=== PATIENT | male | born 1960 | race Caucasian/White ===

== ENCOUNTER 2018-06-02 23:19 | Inpatient (IN) ==
[2018-06-02] MEDS ORDERED: HUMULIN R IV ONE (23:24)
[2018-06-03] MEDS ORDERED: ATIVAN ONE (00:33)
[2018-06-03 00:58] LABS: URINE SOURCE CLEAN CATCH
[2018-06-03 01:00] LABS: BILIRUBIN URINE NEGATIVE (NEGATIVE); BLOOD URINE TRACE (NEGATIVE); COLOR STRAW; GLUCOSE URINE >1000 mg/dL (NEGATIVE); KETONE URINE NEGATIVE (NEGATIVE); LEUKOCYTES URINE NEGATIVE (NEGATIVE); NITRITE URINE NEGATIVE (NEGATIVE); PROTEIN URINE 200 mg/dL (NEGATIVE); SP GRAVITY URINE 1.008; TURBIDITY URINE CLEAR (CLEAR); UROBILINOGEN URINE NORMAL (NORMAL)
[2018-06-03 01:01] LABS: UR EPITHELIAL CELLS <10 /HPF (<10); URINE BACTERIA NEGATIVE /HPF; URINE RBC <10 /HPF (<10); URINE WBC <10 /HPF (<10)
[2018-06-03 01:11] LABS: BASO# 0.03 X1000 (0.0-0.2); BASO% 0.2 % (0.0-0.8); EOS# 0.18 X1000 (0.0-0.7); EOS% 1.4 % (0.0-10.0); HEMATOCRIT 33.4 % (42.0-52.0); HEMOGLOBIN 10.6 g/dL (14.0-18.0); LYMPH# 0.42 X1000 (1.2-3.4); LYMPH% 3.3 % (20.5-51.1); MCH 29.8 PG (27-31); MCHC 31.7 g/dL (33-37); MCV 93.8 FL (81-99); MONO# 0.41 X1000 (0.11-0.59); MONO% 3.2 % (1.7-9.3); MPV 11.5 FL (7.4-10.4); NEUT# 11.83 X1000 (1.4-6.5); NEUT% 91.9 % (42.2-75.2); PLT 280 X1000 (130-400); RBC 3.56 XMIL (4.7-6.1); RDW 14.3 % (11.5-14.5); WBC 12.87 X1000 (4.8-10.8)
[2018-06-03 01:12] LABS: ALB/GLOB RATIO 0.9; ALBUMIN 3.8 g/dL (3.5-5.0); CALCIUM 9.3 mg/dL (8.8-10.2); CREATININE 5.4 mg/dL (0.7-1.2); TOTAL BILIRUBIN 0.18 mg/dL (0.20-1.00)
[2018-06-03 01:17] LABS: POTASSIUM 6.3 mmol/L (3.5-5.1)
[2018-06-03 01:21] LABS: UR AMPHETAMINES QUAL NONE DETECTED (NONE DETECT); UR BARBITUATES QUAL NONE DETECTED (NONE DETECT); UR BENZODIAZEPIN QUAL NONE DETECTED (NONE DETECT); UR CANNABINOIDS QUAL NONE DETECTED (NONE DETECT); UR COCAINE QUAL NONE DETECTED (NONE DETECT); UR METHADONE QUAL NONE DETECTED (NONE DETECT); UR OPIATES QUAL NONE DETECTED (NONE DETECT); UR OXYCODONE QUAL NONE DETECTED (NONE DETECT); UR PCP QUAL NONE DETECTED (NONE DETECT)
[2018-06-03] MEDS ORDERED: HUMULIN R IV ONE (01:48)
--- NOTE | 2018-06-03 01:56 | PROVIDER DOCUMENTATION ---
This chart was entered by Nasima Johnson Scribe, acting as scribe for Howard Vega MD. HPI-General Adult - General Chief Complaint: Stroke-Like Symptoms Stated Complaint: unresponsive Time Seen by Provider: 06/02/18 23:22 Source: patient, EMS Allergies/Adverse Reactions: Patient Allergies Allergy/AdvReac Type Severity Reaction Status Date / Time No Known Allergies Allergy Verified 06/03/18 00:44 Home Medications: Home Medication List Medication Instructions Recorded Confirmed Last Taken Type Aspirin 81 mg PO DAILY #30 tab.chew 07/19/17 05/13/18 03/26/18 09:00 Rx Cyclobenzaprine [Flexeril] 10 mg PO TID PRN #15 tab 03/29/18 06/03/18 Unknown Rx Amiodarone [Cordarone] 200 mg PO DAILY #0 tablet 05/22/18 06/03/18 Unknown Rx Insulin Glargine [Basaglar] 40 unit SUBQ QAM insuln.pen 05/22/18 Unknown Rx Amlodipine [Norvasc] 10 mg PO DAILY 06/03/18 06/03/18 Unknown History Apixaban [Eliquis] 5 mg PO BID 06/03/18 06/03/18 Unknown History Gabapentin [Neurontin] 300 mg PO TID 06/03/18 06/03/18 Unknown History - History of Present Illness -Gen Adult Nature of Presenting Problems: Pt is 58/m, presenting to ED via EMS. He was found unresponsive by his and she called EMS. He was responsive upon arrival to ED. Pt has hx of CVA. Pt is on dialysis and sts that he drives himself. Location of Pain/Injury: reports: none Pain Radiation: reports: no radiation Quality of Pain: reports: none Severity: reports: moderate Onset/Duration: reports: just prior to arrival Timing: reports: improving Context/Activities at Onset: reports: none Modifying Factors: improves with: nothing Associated Symptoms: reports: denies symptoms Similar Symptoms Previously?: No Recently seen or treated by another doctor?: No - Diabetes Related Context Context: reports: high blood sugar (over 500) Review of Systems - Adult - REVIEW OF SYSTEMS - ADULT Constitutional: reports: no symptoms reported. denies: chills, fever Eyes: reports: no symptoms reported Ears, Nose, Mouth & Throat: reports: no symptoms reported Cardiovascular: reports: no symptoms reported Respiratory: reports: no symptoms reported Gastrointestinal: reports: no symptoms reported. denies: abdominal pain, diarrhea, nausea, vomiting Genitourinary: reports: no symptoms reported Musculoskeletal: reports: no symptoms reported Integumentary: reports: no symptoms reported Neurological: reports: no symptoms reported. denies: dizziness/vertigo, headache/migraines Psychiatric: reports: no symptoms reported Endocrine: reports: no symptoms reported Hematologic/Lymphatic: reports: no symptoms reported Allergic/Immunologic: reports: no symptoms reported All Other Systems: Reviewed and Negative Past History - Adult - PAST MEDICAL HISTORY-ADULT Review of Records: reports: Old Records Reviewed, Nursing Assessment Review, Medications Reviewed, Social history reviewed & non-contributory. Major Childhood Illnesses: reports: denies history Cardiovascular: reports: A-Fib, HTN, hyperlipidemia Genitourinary: reports: dialysis (MWF), ESRD Musculoskeletal: reports: denies history Neurological: reports: CVA Psychiatric: reports: denies history Endocrine/Immune: reports: Diabetes - PRIOR SURGERIES/PROCEDURES Surgical/Procedure History: reports: indwelling device (R fistula; dialysis port ), orthopedic (extremity) (L wrist) - IMMUNIZATION STATUS Childhood Immunizations: See Nurse Assessment Flu Vaccine: See Nurse Assessment - FAMILY HISTORY Family History: reviewed, not pertinent - SOCIAL HISTORY Smoking: cigarettes, less than 1 pack/day Provider spent 3-5 mins advising pt. on dangers of tobacco.: Discussed manners to quit use, and f/u contacts for add'l counseling. Substance Use: none/never Alcohol Use Frequency: never Living Situation: family Physical Exam-General - PHYSICAL EXAM-ADULT Initial Vital Signs Reviewed: Yes - CONSTITUTIONAL General Appearance: alert, other (Exam began w/ pt oriented and answering questions, as the exam progressed pt became more and more jerky w/ movements. He then had a grand maul seizure lasting around 1 minutes.) - EYES Eyes: PERRL/EOMI - HEAD, EARS, NOSE, MOUTH & THROAT HENMT: normocephalic/atraumatic, moist mucous membranes, normal ENT inspection, TMs normal, pharynx normal - NECK Neck: non-tender, full range of motion, supple - RESPIRATORY Respiratory: chest non-tender, lungs clear, normal breath sounds (*before seizure) - CARDIOVASCULAR Cardiovascular: regular rate, rhythm - GASTROINTESTINAL (ABDOMEN) Abdominal Exam: normal bowel sounds, non tender, soft - LYMPHATIC Lymphatic: no adenopathy - MUSCULOSKELETAL Back Exam: normal inspection, no CVA tenderness, no vertebral tenderness Extremity: normal range of motion, non-tender, normal gait, normal inspection - SKIN Integumentary: normal color, normal turgor, warm/dry - NEUROLOGIC Neurologic: grossly normal - PSYCHIATRIC Psych/Mental Status: normal mood/affect, normal thought content, normal thought process, oriented x 3 Progress - PLAN OF CARE/RESULTS Progress/Plan/Lab Results: Vital Signs - 8 hr 06/03/18 00:04 Pulse Rate 78 Respiratory Rate 16 Blood Pressure 145/78 O2 Sat by Pulse Oximetry 97 Orders Category Date Time Status CT HEAD W/O CONTRAST [CT] Stat Exams 06/02/18 23:22 Taken CBC WITH ELECTRONIC DIFF [HEME] Stat Lab 06/02/18 23:22 Uncollected COMPREHENSIVE METABOLIC PANEL [CHEM] Stat Lab 06/02/18 23:22 Uncollected Insulin Human Regular [Humulin R] Med 06/02/18 23:24 Discontinued 10 unit IV NOW ONE Result Diagrams: 06/03/18 00:17 06/03/18 00:17 - REASSESSMENT Reassessment #1 Time Reassessed: 01:49 Status: unchanged (He did have a one min tonic clonic GM seizure after return from CT scan and his lab work has returned confirming a K+ of 6.3 and BS 538 despite despite 10 units of insulin IV shortly after admission.) - EKG 1 Time of EKG reading by physician:: 00:51 EKG Interpretation (*Must complete 3 of following elements*): Abnormal (normal sinus rhythm, left axis deviation, Inferior infarct, age undetermined, Abnormal ECG) Rate: 99 Rhythm: Sinus - CT/MRI 1 CT Study: Head Impression: Abnormal (Impression: 1. Mild cerebral volume loss with white matter changes most frequently ascribed to chronic small vessel ischemic disease. No acute intracranial abnormality. See detailed discussion. 2. Right greater than left mastoiditis. Ethmoid and maxillary sinusititis , acute component in left maxillary sinus) - CONSULTS/PCP/HOSPITALIST Notification #1 *Consult/PCP/Hospitalist*: Dr Connelly Time Discussed: 01:53 Consult Disposition: Admit Departure - Departure Date of Disposition Decision: 06/03/18 Time of Disposition Decision: 01:54 DIAGNOSIS: Hyperglycemia without ketosis, Uremia, Chronic renal failure, Diabetes Disposition: HOME 01 Certified Medical Emergency: Emergent Condition: Serious Referrals and Follow-Ups: None,PCP [Primary Care Provider] - - Critical Care Note This patient required my direct & personal management of CC.: Yes Total Time (mins): 40 Critical Care Statement: This patient required my direct personal management to treat or rule out processes, the absence of which, could potentiallly result in sudden, clinically significant life or limb threatening deterioration. Attestation - Physician/ LEISA Attestation Patient care was provided by Advanced Practice Provider:: No The physician spent face to face time with patient:: Yes Advanced Practice Provider documentation review:: Supervising physician onsite and consulted in the evaluation and care of this patient. The physician did have a face to face encounter with the patient. This chart was documented by the indicated scribe, (Nasima Johnson, Scribe) and accurately reflects the services I performed and decisions made by me, Howard Vega MD, as attested by the provider's signature.
[2018-06-03] MEDS ORDERED: ATIVAN IV PRN (03:26)
[2018-06-03] MEDS ORDERED: ZOFRAN IV PRN (04:07)
[2018-06-03] MEDS ORDERED: KAYEXALATE PO ONE (04:07)
--- NOTE | 2018-06-03 04:10 | HISTORY AND PHYSICAL ---
PRIMARY CARE PHYSICIAN: Dr. Arias Browning. CHIEF COMPLAINT: Altered mental status. HISTORY OF PRESENTING ILLNESS: A 58-year-old male with a history of end-stage renal disease, diabetes mellitus type 2, hypertension, chronic atrial fibrillation, who was brought to the emergency department because patient was altered and confused, and not responsive. He was brought to the emergency department. He still was somewhat sluggish, but however, he was able to answer a few questions. It seems that patient had missed his dialysis sessions for the past week or so. He was evaluated in the emergency department and due to his presenting symptoms, it was thought that he would need admission for further management. At the time of my examination, he was able to deny any headache, fever, chills, chest pain, shortness of breath, or any weight changes, but complained of not feeling well. Remaining history is limited from patient. Most of it is obtained from previous records. PAST MEDICAL HISTORY: End-stage renal disease, diabetes mellitus type 2, hypertension, hyperlipidemia, chronic atrial fibrillation. PAST SURGICAL HISTORY: Left arm fistula, left arm surgery, right upper chest tunnel catheter. ALLERGIES: No known drug allergies. CURRENT MEDICATIONS: As listed in the medication reconciliation sheet. SOCIAL HISTORY: 40+ pack years history of smoking. Denies any history of alcohol or illicit drug use. FAMILY HISTORY: No history of coronary disease. REVIEW OF SYSTEMS: Limited. PHYSICAL EXAMINATION: GENERAL: The patient is resting comfortably. However, is somewhat confused and somnolent. HEENT: Atraumatic, normocephalic. NECK: No masses. CHEST: Clear to auscultation. CARDIOVASCULAR: Regular rate and rhythm. ABDOMEN: Soft. Positive bowel sounds. EXTREMITIES: No edema. NEUROLOGIC: Patient is arousable on verbal and tactile stimuli. GENITOURINARY: No bladder distention. SKIN: Warm. LABORATORIES AND STUDIES: WBCs 12.87, hemoglobin 10.6, hematocrit 33.4, platelets 280,000. Sodium 129, potassium 6.3, chloride 90, CO2 is 16, BUN is 42, creatinine is 5.4. Glucose is 538. ASSESSMENT: This is a 58-year-old male with a history of end-stage renal disease, diabetes mellitus type 2, hypertension, chronic atrial fibrillation, who was brought to the emergency department due to patient being altered. Apparently, he had missed his dialysis sessions. He was seen in the emergency room and due to his presenting symptoms, he will need admission for further management. IMPRESSION: 1. Altered mental status. 2. Metabolic encephalopathy. 3. End-stage renal disease, apparently had missed dialysis session. 4. Hyperkalemia. 5. Chronic atrial fibrillation on anticoagulation. 6. Diabetes mellitus type 2 with hyperglycemia. 7. Hypertension. PLAN: 1. The patient will be admitted to medical floor with telemetry. 2. We will continue with neuro checks. 3. We will treat patient for his hyperkalemia. 4. We will consult Nephrology for dialysis. 5. We will continue patient on his anticoagulation for atrial fibrillation. 6. We will monitor blood glucose and put patient on a sliding scale insulin regimen. 7. We will monitor blood pressure, resume antihypertensive agents. 8. We will put patient on DVT prophylaxis with SCD. 9. The patient's condition is guarded. 10. We will continue to follow and reassess, and make further recommendation based on patient's clinical course. cc: Ba Connelly MD
[2018-06-03] MEDS: HUMULIN R SUBQ SCH ×4 (06:50→23:00)
--- NOTE | 2018-06-03 07:02 | Diag Imaging Result Doc PS360 ---
EXAM: CT HEAD W/O CONTRAST 06/02/2018 HISTORY: ams since 14:30 TECHNIQUE: This exam was performed using automated exposure control, adjustment of mA or kV according to patient size, and/or use of iterative reconstruction technique. COMMENT: There is patchy lucency in the periventricular white matter particularly in the frontal horns which was also present at the time the previous study of 12/11/2017. There is no evidence of mass effect, bleed, abnormal extra-axial fluid collection, or hydrocephalus. There is a small lacune in the right cerebellar hemisphere which was also present previously. The calvarium is intact. There is an air-fluid level in the left maxillary sinus and mucosal thickening in the right maxillary sinus. There is effusion throughout the right mastoid air cells. There is some fluid in the inferior left mastoid air cells. This was not present on the previous study. IMPRESSION: Bilateral maxillary sinusitis. Right mastoiditis. Chronic ischemic microvascular changes. Electronically signed by Ciaran Sorenson 06/03/2018 7:00 AM
--- NOTE | 2018-06-03 08:07 | EKG Report ---
Test Performed on : 06/03/2018 00:51:55 AM Test Reason : CP Blood Pressure : / mmHG Vent. Rate : 099 BPM Atrial Rate : 099 BPM P-R Int : 202 ms QRS Dur : 090 ms QT Int : 370 ms P-R-T Axes : 041 -41 037 degrees QTc Int : 474 ms Normal sinus rhythm. Left axis deviation Inferior infarct , age undetermined Abnormal ECG When compared with ECG of 19-MAY-2018 09:09, Inferior infarct is now present Unconfirmed Result
[2018-06-03] MEDS ORDERED: TIGHT: 0.2 ML/HR FOR DIALYSIS MISC PRN (08:12)
[2018-06-03] MEDS ORDERED: HEPARIN IV PRN (08:12)
[2018-06-03] MEDS ORDERED: NS 2,000 ML MISC PRN (08:12)
[2018-06-03] MEDS: ELIQUIS PO SCH ×2 (10:07→22:59)
[2018-06-03] MEDS: CORDARONE PO SCH (10:07)
[2018-06-03] MEDS: NORVASC PO SCH (10:07)
[2018-06-03] MEDS: ASPIRIN PO SCH (10:07)
[2018-06-03] MEDS: BASAGLAR SUBQ SCH ×2 (10:16→10:45)
[2018-06-03] MEDS ORDERED: INSULIN PEN NEEDLES ONE (10:17)
[2018-06-03 10:43] LABS: CALCIUM 8.5 mg/dL (8.8-10.2); POTASSIUM 5.9 mmol/L (3.5-5.1)
[2018-06-03 10:53] LABS: CREATININE 5.5 mg/dL (0.7-1.2)
--- NOTE | 2018-06-03 10:58 | PROGRESS NOTE ---
DATE: 06/03/2018 INTERVAL HISTORY: Mr. Fox is a 58 year old man who was admitted overnight for acute encephalopathy which was thought to be related to metabolic derangement because of him missing hemodialysis leading to hyponatremia, hypochloremia, hyperkalemia, elevated BUN and creatinine, and hyperglycemia. He had received a dose of Kayexalate and insulin. Repeat BMP check is pending. SUBJECTIVE: I evaluated the patient in the emergency room. He is awake. He is still a little confused. He could not remember the entire course of events. He states that he was not feeling well, was feeling dizzy, and had multiple falls since yesterday, and that he might have had a stroke or seizure. He thinks that his [id number] had called the emergency room services, but otherwise he is not able to provide meaningful history. I called the patient's son who did not warehouse order picker, and I had left a voice message so that I can get more history. OBJECTIVE: Vital Signs: Temperature 97.8 degrees, pulse 76 per minute, blood pressure 134/78, and saturating 100% on 3 to 4 L nasal cannula. General: The patient does not appear in any acute distress. Appears confused and disheveled. Oral cavity has missing teeth. Otherwise has saliva. Lungs: Air entry bilaterally equal. No wheeze, rhonchi, or crackles. Cardiovascular: S1, S2 normal. No murmur, rub, or gallop. Abdomen: Soft and nontender. Lower Extremities: No edema. Neurologic: He is alert. He is oriented to himself and place, and to some extent situation as well. He is able to lift all of his extremities above ground level. However, he has some weakness against resistance on left upper and left lower extremities compared to right. No obvious facial droop or ptosis. Neurological examination is restricted because of his inability to participate with examination completely. LABORATORY: Labs are suggestive of leukocytosis. Hemoglobin and platelet count in acceptable range. Hyponatremia, hyperkalemia, hypochloremia, metabolic acidosis, elevated BUN and creatinine, and hyperglycemia. Microbiology: No microbiologic data. Imaging: Head CT had chronic microvascular ischemic changes. Electrocardiogram has normal sinus rhythm with left axis deviation. There were also Q-waves in lead 3 and AVF, which appear to be present before as well. ASSESSMENT AND PLAN: 1. Acute metabolic encephalopathy, likely because of multiple electrolyte derangements and hyperglycemia with documented history of missing hemodialysis. Nephrology has been consulted for hemodialysis. There was a question of seizure. However, he denies prior history of known seizure and waiting to get in touch with the family to have better idea about this history. I will hold off on giving any antiseizure medication at the moment. Currently, acute encephalopathy appears to be improving. 2. Hyperkalemia. He is status post insulin. Follow up with repeat BMP and treat accordingly. 3. Hyperglycemia with history of insulin-dependent diabetes mellitus. Started him on his half dose of his home glargine. Continue sliding scale insulin. 4. History of atrial fibrillation. Continue home amiodarone and Eliquis. 5. History of CVA with residual left upper and left lower extremity. Continue home aspirin and Eliquis. 6. History of essential hypertension. Resume amlodipine as tolerated. 7. History of chronic neuropathic pain. I will restart his gabapentin once his mental status is appropriate. 8. Disposition: Patient remains on medical floor for need for dialysis. if needed in the future, I would consider getting an EEG. Plan of care discussed with the patient. I could not talk with his son and have left a voice message. cc: Luciano Perez MD
--- NOTE | 2018-06-03 14:17 | NEPHROLOGY CONSULTATION ---
DATE: 06/03/2018 REASON FOR ADMISSION: Altered mental status. REASON FOR CONSULT: End-stage renal disease with assistance with medical management. HISTORY OF PRESENT ILLNESS: Mr. Fox is a 58-year-old white male who is known to our outpatient services for end-stage renal disease with dialysis on Sunday, Sunday, Sunday at the [facility]. The patient had recently been hospitalized for noncompliance of his dialysis treatments this past month. Unfortunately, he states that he was going to start doing better and it is known that he has not been attending his last treatments at this time as he has altered mental status and is unable to report his last treatments. States that he was brought to the emergency room after being found unresponsive. In the emergency room he was somewhat sluggish, was able to answer a few questions. Chart indicates in the emergency room that he had missed several treatments this past week. Evaluated and found to have presenting symptoms of possible UTI and possible uremia. He was admitted to the hospital for further management. CT of the head was performed in the emergency room which showed no acute disease. The patient was recently discharged with a history of end stage kidney disease and diabetic ketoacidosis with altered mental status earlier this month. PAST MEDICAL HISTORY: End-stage renal disease, the hemodialysis his Sunday, Sunday, Sunday at the [facility], diabetes mellitus type 2, uncontrolled, hypertension, hyperlipidemia, chronic atrial fibrillation, anemia of chronic disease, osteodystrophy of chronic disease. PAST SURGICAL HISTORY: Left arm fistula, left arm surgery, right upper chest tunneled dialysis catheter. SOCIAL HISTORY: He lives on and off with his daughter. A 40 pack a year smoker. Denies any alcohol or illicit drug use. FAMILY HISTORY: Positive for diabetes. No known coronary artery or end-stage renal disease. ALLERGIES: Listed as no known drug allergies. HOME MEDICATIONS: Have been reviewed, yet to be reconciled. REVIEW OF SYSTEMS: Unable to obtain strictly from the patient due to his altered mental status. Most obtained from most recent charts. VITAL SIGNS: Most recent vital signs, temperature 97.6 degrees, blood pressure 126/86, heart rate 86, respirations 20. He is on 4 L nasal cannula. Last recorded saturation 99% . He has had 1030 in, 450 out to void. LABS: Sodium 129, potassium 6.3, chloride 90, CO2 16, BUN 42, creatinine 5.4, glucose 538, anion gap 23, calcium 9.3, albumin 3.8. White count 12.87, hemoglobin 10.6, hematocrit 33.7, with platelet count of 280,000. PHYSICAL EXAMINATION: General: This is a 58-year-old white male resting quietly in bed. Head of the bed is elevated. He remains confused, though he is resting quiet and comfortable. HEENT: Normocephalic, atraumatic. Conjunctivae pale pink. He has JESSICA. Mucous membranes are dry. Neck: Supple. Trachea midline. No evidence of JVD in the upright position. Cardiovascular: Regular rate and rhythm. No murmur appreciated. Lungs: Clear to auscultation bilaterally. Equal excursion. Abdomen: Hypoactive bowel sounds. Extremities: Have no edema. No clubbing or cyanosis. Neurological: As mentioned above. ASSESSMENT AND PLAN: 1. Chronic kidney disease stage 5D. The patient is due for his routine dialysis treatment today. We will place him on a 2 K bath. He is to dialyze for 3.5 hours. We will attempt to pull patient to his last outpatient dry weight. We may attempt dialysis tomorrow and the next several days if needed to improve his uremic symptoms. 2. Electrolytes. Patient is hyperkalemic and hyponatremic, secondary to number one, with correction on dialysis. 3. Acid-base balance. CO2 of 16, with correction on dialysis. 4. Anemia. This is low but stable. 5. Altered mental status. The patient appears to be uremic. We will plan for dialysis today and possibly several times in a row to assist with his encephalopathy. I would like to thank you for allowing us to follow with this patient. Dictated by JITENDRA Newsome for Cameron Mcneil MD Face to face encounter, data reviewed, discussed with Brian Pineda on 06/03/18. I agree with the above assessment and plan of care. cc: JITENDRA Newsome MD [facility]
[2018-06-03] MEDS ORDERED: ALBUTEROL 0.5% INH CONC FOR HYPERKALEMIA INH ONE (14:20)
[2018-06-04] MEDS: HUMULIN R SUBQ SCH ×4 (06:38→22:11)
[2018-06-04 07:30] LABS: BASO# 0.03 X1000 (0.0-0.2); BASO% 0.4 % (0.0-0.8); EOS# 0.41 X1000 (0.0-0.7); HEMATOCRIT 29.4 % (42.0-52.0); HEMOGLOBIN 9.4 g/dL (14.0-18.0); LYMPH# 1.38 X1000 (1.2-3.4); LYMPH% 20.1 % (20.5-51.1); MCH 29.4 PG (27-31); MCV 91.9 FL (81-99); MONO# 0.55 X1000 (0.11-0.59); MPV 10.7 FL (7.4-10.4); NEUT# 4.49 X1000 (1.4-6.5); NEUT% 65.5 % (42.2-75.2); PLT 244 X1000 (130-400); RDW 14.2 % (11.5-14.5); WBC 6.86 X1000 (4.8-10.8)
[2018-06-04] MEDS: ASPIRIN PO SCH (08:13)
[2018-06-04] MEDS: ELIQUIS PO SCH ×2 (08:13→22:11)
[2018-06-04] MEDS: CORDARONE PO SCH (08:13)
[2018-06-04] MEDS: NORVASC PO SCH (08:13)
[2018-06-04 08:15] LABS: CALCIUM 8.1 mg/dL (8.8-10.2); CREATININE 3.5 mg/dL (0.7-1.2); POTASSIUM 5.1 mmol/L (3.5-5.1)
[2018-06-04] MEDS: BASAGLAR SUBQ SCH (08:15)
--- NOTE | 2018-06-04 10:28 | Diag Imaging Result Doc PS360 ---
CHEST-2 VIEWS - 06/04/2018 INDICATION: chest pain, cough COMPARISON: 05/19/2018 FINDINGS: There is worsening faint infiltrate in the lung bases bilaterally mainly in the lower lobes. There are trace bilateral pleural effusions. Heart size and pulmonary vascularity is normal. Stable high-grade compression fracture in the midthoracic spine. IMPRESSION: Faint bibasilar infiltrates. Trace bilateral pleural effusions. Electronically signed by Juan Miguel Whyte 06/04/2018 10:25 AM
--- NOTE | 2018-06-04 11:23 | NEPHROLOGY PROGRESS NOTE ---
DATE: 06/04/2018 TIME SEEN: 0830. SUBJECTIVE: Mr. Fox is resting quietly in bed. Head of the bed is slightly elevated. He states that he had fallen several times over the last week and has some rib discomfort. OBJECTIVE: Vital Signs: Temperature 98.2 degrees, blood pressure 108/70, heart rate 84, respirations 14. He is on 4 L nasal cannula. Last recorded saturation 97%. He has had 0 recorded in with 4375 out, 2.5 L on dialysis. Laboratory Data: Sodium 134, potassium 5.1, chloride is 97, CO2 24, BUN 16, creatinine 3.5, glucose 159, anion gap of 13, calcium 8.1. White count 6.86, hemoglobin 9.4, hematocrit 29.4, with a platelet count of 244,000. The patient had a chest x-ray this a.m. showing faint bibasilar infiltrates with trace bilateral pleural effusions. Physical Examination: General: This is a 58-year-old, white male resting quietly in bed. He appears in no acute distress. His skin is warm and dry. HEENT: Normocephalic , atraumatic. Conjunctivae are pale pink. He has JESSICA. Mucous membranes are moist. Neck: Supple. Trachea midline. No evidence of JVD in the upright position. Cardiovascular: Regular rate and rhythm. He is without murmur or gallop. Lungs: Clear to auscultation bilaterally. Equal excursion. He is currently on O2. Abdomen: Soft, nontender. Positive bowel sounds. Genitourinary: The patient has adequate urine out with dialysis assist. Extremities: Have no edema. No clubbing or cyanosis. Neurological: He is more awake and alert today to person and to place, most recent events. ASSESSMENT AND PLAN: 1. Chronic kidney disease stage 5D. The patient had his routine dialysis treatment yesterday. His BUN is down to 16 with a creatinine of 3.5. Chest x-ray shows that he has bilateral infiltrates with some pleural effusions. We will plan to challenge his dry weight again tomorrow on dialysis. 2. Electrolytes and acid-base balance. These remain stable. 3. Anemia. This is low but acceptable. 4. Altered mental status. This has improved. I would like to thank you for allowing us to follow with this patient. Dictated by JITENDRA Newsomeh, MD Face to face encounter, data reviewed, discussed with Brian Pineda on 06/04/18. I agree with the above assessment and plan of care. cc: JITENDRA Newsome MD [facility]
--- NOTE | 2018-06-04 17:50 | PROGRESS NOTE ---
DATE: 06/04/2018 INTERVAL EVENTS: The patient underwent hemodialysis yesterday. The patient tells me that his son's telephone is not working and that is why I was not able to reach out to him yesterday. I have to leave a voice message. He states he does not have any contact information. I told him to have his son or [id number] leave contact information so that I can get a proper history. Today patient states that the day prior to presentation he kept on falling down and probably his daughter in-law called EMS. He states that he has been compliant with his dialysis though. However, documentation suggests that he was not. Currently the patient is complaining of some chest soreness, but the chest x-ray is negative. OBJECTIVE: Vital signs: Temperature of 97.7 degrees, pulse 77, blood pressure 120/75, saturating 95% on room air. General: Does not appear in any acute distress. HEENT: Oral cavity is moist. Lungs: Air entry bilaterally equal. No wheeze, rhonchi, crackles. Cardiovascular: S1, S2 normal. Continuous murmur of AV fistula with left arm AV fistula. No rub or gallop. Abdomen: Soft, nontender. Lower Extremities: No edema. Neurologic: He is alert and oriented x3. Able to move all of his extremities above ground level. LABS: Labs today suggestive of resolution of leukocytosis which he had at the time of presentation. Acceptable range of hemoglobin, hematocrit, and platelet count. Hyponatremia, hypochloremia, improvement in bicarbonate. Improvement in BUN and creatinine. Hyperglycemia. He has yet to receive his sliding scale insulin during daytime. MICROBIOLOGY: No data report. IMAGING: Chest x-ray had suggested bilateral pleural effusion. On my review, I could not appreciate any infiltrate though. Head CT on admission did not detect any acute cardiopulmonary process. ASSESSMENT AND PLAN: 1. Acute metabolic encephalopathy, likely because of missing hemodialysis, multiple electrolyte derangement including hyponatremia, hypochloremia, acidosis on presentation, uremia, and hyperglycemia. Now it has resolved. Continue to monitor patient. There was a question of seizure. However, the patient denies any known prior history of seizure and I have not been able to reach out to the family to get proper history. I will hold giving antiseizure medication at the moment. 2. Hyperkalemia on presentation. Now resolved, after dialysis. 3. Hyperglycemia with history of insulin-dependent diabetes mellitus. Increase his long-acting insulin dose. Continue sliding scale insulin. I reminded the care team to give him sliding scale insulin which he has not received since the morning, 6:30 a.m. 4. History of atrial fibrillation, currently rate controlled. Continue home amiodarone and Eliquis. His EKG was normal sinus rhythm. 5. History of cerebrovascular accident with residual left upper and left lower extremity weakness. Continue home aspirin and Eliquis. 6. History of essential hypertension. I will resume home amlodipine as tolerated. Currently, his blood pressure is in acceptable range. 7. History of chronic neuropathic pain. I will add back his gabapentin when he asks for it. Currently, he is not complaining of any pain. 8. Disposition. I will have physical therapy evaluate the patient tomorrow as he has had multiple falls. If he is able to ambulate without any trouble, my plan is to discharge him home after hemodialysis tomorrow. Plan of care was discussed with the patient. All of his questions were answered. I have asked the patient to have his family members leave contact information. cc: Luciano Perez MD
[2018-06-05] MEDS: HUMULIN R SUBQ SCH ×4 (06:07→22:30)
[2018-06-05] MEDS ORDERED: NS 2,000 ML MISC PRN (06:42)
[2018-06-05] MEDS ORDERED: HEPARIN IV PRN (06:42)
[2018-06-05] MEDS ORDERED: TIGHT: 0.2 ML/HR FOR DIALYSIS MISC PRN (06:42)
[2018-06-05 07:26] LABS: ALBUMIN 3.1 g/dL (3.5-5.0); CALCIUM 9.1 mg/dL (8.8-10.2); CREATININE 4.6 mg/dL (0.7-1.2); POTASSIUM 4.9 mmol/L (3.5-5.1)
[2018-06-05] MEDS: ASPIRIN PO SCH (08:45)
[2018-06-05] MEDS: CORDARONE PO SCH (08:45)
[2018-06-05] MEDS: NORVASC PO SCH (08:45)
[2018-06-05] MEDS: ELIQUIS PO SCH ×2 (08:45→21:02)
[2018-06-05] MEDS: BASAGLAR SUBQ SCH (08:46)
[2018-06-05] MEDS ORDERED: BASAGLAR SUBQ SCH (09:00)
--- NOTE | 2018-06-05 10:04 | NEPHROLOGY PROGRESS NOTE ---
DATE: 06/05/2018 DATE AND TIME SEEN: 06/05/2018 at 0738. SUBJECTIVE: Mr. Fox is resting quietly in bed. He denies any pain. No increased work of breathing. He states that his chest hurts with deep inspiratory effort and movement secondary to recent falls. OBJECTIVE: Vital Signs: Temperature 97.6, blood pressure 154/79, heart rate 82 , respirations are 20. He is on room air. Last recorded saturation 97%. He has had 480 in and 1400 out. LABORATORY DATA: Sodium 136, potassium 4.9, chloride 97, CO2 of 22. BUN 30, creatinine 4.6, glucose 60. Anion gap 17, calcium 9.1, phosphorus 4, albumin 3.1. Previous hemoglobin 9.4 on 06/04/2018. PHYSICAL EXAMINATION: This is a 58-year-old white male who appears older than his stated age. He is resting quietly in no acute distress. Skin is warm and dry. HEENT: Normocephalic, atraumatic. Conjunctivae pale, pink. He has JESSICA. Mucous membranes are moist. Neck is supple. Trachea midline. No JVD. Cardiovascular: Regular rate and rhythm. S4 is present. Lungs are clear to auscultation bilaterally. Equal excursion on room air. Abdomen is soft, nontender. Positive bowel sounds. Genitourinary: Not inspected. Minimal void with dialysis assist. Extremities have no edema. No clubbing or cyanosis. Neurologic: Alert and oriented x3. ASSESSMENT AND PLAN: 1. Chronic kidney disease, stage 5D. The patient is due for his routine dialysis treatment today. We will place him on a 2K bath, dialyze for 3.5 hours. We will attempt to pull patient to his outpatient dry weight. 2. Electrolytes and acid-base balance. These are stable. 3. Anemia. This is acceptable. 4. Altered mental status. This has improved. We have encouraged patient to attend his outpatient prescription dialysis upon discharge as directed. I would like to thank you for allowing us to follow with this patient. Dictated by JITENDRA Newsome for Cameron Mcneil MD Face to face encounter, data reviewed, discussed with Brian Pineda on 06/06/18. I agree with the above assessment and plan of care. cc: JITENDRA Newsome MD [facility]
--- NOTE | 2018-06-05 16:59 | PROGRESS NOTE ---
DATE: 06/05/2018 INTERVAL EVENTS: No interval events acutely. The patient was able to work with physical therapy without any trouble. Physical therapy had recommended home with home physical therapy. SUBJECTIVE: Patient complains of some chest soreness. He denies any more shortness of breath. He has been alert and oriented x3. His blood sugars were fluctuating, for which insulin dose has been adjusted. He is getting dialysis and I saw him in dialysis. I discussed with him about discharge planning. However, he states that he would not be able to go home today as he does not have a ride and likely his family members are going to come by tomorrow, when he would like to go. OBJECTIVE: Vital signs: Temperature 98.3 degrees, pulse 80, respiratory rate 20, blood pressure 138/84, saturating 98% on room air. General: Does not appear in acute distress. HEENT: Oral cavity is moist. Lungs: Air entry bilaterally equal. No wheeze, rhonchi, crackles. Cardiovascular: S1, S2 normal. Continuous murmur of AV fistula with left arm AV fistula connected to dialysis tubing. No rub or gallop. Abdomen: Soft, nontender. Extremities: No lower extremity edema. Neurologic: Alert and oriented x3. On my yesterday's neurological examination, he was able to move all of his extremities above ground level without any trouble. LABS: BMP suggestive of elevated BUN and creatinine. No CBC today. His blood sugars have been ranging between 58 to 250. ASSESSMENT AND PLAN: 1. Acute metabolic encephalopathy because of missing hemodialysis, hyponatremia , hypochloremia, acidosis, hyperkalemia, uremia, and hyperglycemia, now resolved. Currently his mental status is alert and oriented x3, which is his baseline. There was a question of seizure on admission. However, patient denies any known prior history of seizure. I have not been able to get in touch with the patient's family members to get more history. For now no need of antiseizure medication. 2. Hyperkalemia on presentation, resolved. 3. Hyperglycemia with history of insulin-dependent diabetes mellitus. Now hypoglycemia as well. Continue sliding scale insulin and Lantus. I initially had him on Lantus of 40, which I changed to 30 units daily. I would further adjust dose according to blood sugar response. 4. Chest soreness which is reproducible on physical examination. The patient states that when he kept on having mechanical fall episodes right prior to presentation and had passed out, probably his daughter in-law had given him some chest compressions. However , I could not confirm this history. His chest pain is reproducible. His EKG on admission had normal sinus rhythm, so this was unlikely related to any cardiac etiology. 5. History of atrial fibrillation, currently rate controlled and normal sinus rhythm, so it was likely paroxysmal. Continue home amiodarone. He is also listed to be taking Eliquis as per the history which is documented in previous discharge summary. I will continue it at a lower dose of 2.5 mg b.i.d., though he has end-stage renal disease and he should discuss with his regular doctor about the need for this and potentially discontinuing it. 6. History of cerebrovascular accident with left upper and left lower extremity weakness. Continue home aspirin and Eliquis. 7. History of essential hypertension. Continue home amlodipine. 8. History of chronic neuropathic pain. I am holding his gabapentin. We will add back as tolerated. 9. Disposition. The patient is medically ready to be discharged. However, patient states that he does not have a ride today. I called 2 of the numbers that were provided to me to contact his family members. However, I was unable to reach out. The patient states that his family would not visit him today. They did not visit him yesterday. They are likely to visit him tomorrow, at which time he would like to go home. So, further discharge planning will be done accordingly tomorrow. cc: Luciano Perez MD [facility]
[2018-06-06] MEDS: HUMULIN R SUBQ SCH ×2 (01:41→06:05)
[2018-06-06 07:46] LABS: ALBUMIN 2.9 g/dL (3.5-5.0); CALCIUM 8.7 mg/dL (8.8-10.2); CREATININE 3.5 mg/dL (0.7-1.2); PHOSPHORUS 3.5 mg/dL (2.7-4.5); POTASSIUM 5.2 mmol/L (3.5-5.1)
[2018-06-06] MEDS: CORDARONE PO SCH (09:18)
[2018-06-06] MEDS: NORVASC PO SCH (09:18)
[2018-06-06] MEDS: BASAGLAR SUBQ SCH (09:19)
[2018-06-06] MEDS: ELIQUIS PO SCH (09:19)
[2018-06-06] MEDS: ASPIRIN PO SCH (09:19)
[2018-06-06] MEDS ORDERED: HUMULIN R SUBQ SCH (14:20)
[2018-06-06 15:45] VITALS: BP 148/97
--- NOTE | 2018-06-06 16:05 | NEPHROLOGY PROGRESS NOTE ---
DATE: 06/06/2018 TIME SEEN: 0825. SUBJECTIVE: Mr. Fox is resting quietly. He is sitting up in a chair. He is eating his breakfast. He denies any pain or increased work of breathing. OBJECTIVE: Vital Signs: Temperature 98.5 degrees, blood pressure 125/81, heart rate 77, respirations 16. He is on room air, last recorded saturation 97%. Intake and output: He has had 1080 in, 2425 out. General: This is a 58-year-old white male, sitting up in a chair. He is in no acute distress. Skin: Warm and dry. HEENT: Normocephalic, atraumatic. Conjunctivae pale pink. He has JESSICA. Mucous membranes are dry. Neck: Supple. Trachea midline. No evidence of JVD. Cardiovascular: Regular rate and rhythm. He has an S4 present. Lungs: Clear to auscultation bilaterally. Equal excursion on room air. Abdomen: Soft. Nontender. Positive bowel sounds. Genitourinary: Not inspected. Minimal void with dialysis assist. Extremities: No edema. No clubbing or cyanosis. Neurological: He is alert and oriented x3. DIAGNOSTIC DATA: Sodium 135, potassium 5.2, chloride 101, CO2 of 21, BUN 21, creatinine 3.5, glucose 64, anion gap 13, calcium 8.7, phosphorus 3.5, albumin 2.9. Previous hemoglobin 9.4 on the . ASSESSMENT AND PLAN: 1. Chronic kidney disease, stage 5D. The patient had his routine dialysis treatment yesterday. We will plan for the a.m. We have discussed that if patient is discharged he is to go to his outpatient prescription at the outpatient clinic. 2. Electrolytes, acid-base balance, and anemia. These are all acceptable. 3. Altered mental status. This has improved. Followed by the primary care. I would like to thank you for allowing us to follow with this patient. Dictated by JITENDRA Newsome for Cameron Mcneil MD cc: JITENDRA Newsome MD
--- NOTE | 2018-06-07 01:12 | DISCHARGE SUMMARY ---
ADMISSION DATE: 06/03/2018 DISCHARGE DATE: 06/06/2018 DISCHARGE DIAGNOSES: 1. Acute metabolic encephalopathy, resolved. 2. Hyperkalemia on presentation, resolved. 3. Medical noncompliance, recurrent. 4. Hyperglycemia, with a history of insulin-dependent diabetes mellitus. 5. Chest pain, atypical, reproducible on physical examination. 6. History of atrial fibrillation, rate-controlled. 7. History of cerebrovascular accident, with left upper and left lower extremity weakness. 8. History of hypertension. 9. Chronic neuropathic pain. 10. End-stage renal disease, on hemodialysis, noncompliant. HOSPITAL COURSE: A 58-year-old male with a past medical history of end-stage renal disease, diabetes, hypertension, chronic atrial fibrillation, brought to the emergency department because of altered mental status. He was unresponsive. When he was examined at the emergency department on 06/02/2018, he was somewhat sluggish, but he was able to answer some of the questions. It looks like he had missed his dialysis sessions for the past week or so. He was recently discharged from this medical center for the same issue, medical noncompliance. He was admitted. He denied at the moment of admission headache, fever, chills, chest pain, shortness of breath, weight changes. Nephrology Department examined this patient, and they put this patient on his routine dialysis. Likely, his mental status was due to uremia. He received multiple rounds of dialysis. Apparently, the patient did not have any transportation ticket to go to the dialysis center. We provided that for him. He received multiple dialyses. He was completely alert and oriented x3. We decreased the dose of the Lantus because he was having some hypoglycemic events, but after reducing the dose, he was much better. He wanted go home today. He was feeling perfect. He was tolerating p.o. and ambulating by himself. This is why we decided to discharge this patient, with a followup by his primary care doctor. He will go for dialysis tomorrow. As per the patient, he is not going to miss any more dialyses or treatments. PHYSICAL EXAMINATION: Vital Signs: Temperature 98 degrees, pulse 90, respiratory rate 20, blood pressure 148/97, oxygen saturation 99 on room air. HEENT: Head normocephalic. No trauma. PERRLA. Neck: Supple. No JVD. No masses. Central trachea. Chest: Clear to auscultation. No wheezing. No rales. Abdomen: Soft, nontender, nondistended. No hepatosplenomegaly. Extremities: No edema. No clubbing. No cyanosis. Neurological: Alert and oriented x3. He is able to move all 4 extremities. LABORATORY: Sodium 135, potassium 5.2, chloride 101, bicarbonate 21, BUN 21, creatinine 3.5, glucose 64, calcium 8.7, albumin 2.9. DISCHARGE MEDICATIONS: Aspirin 81 mg p.o. daily, Flexeril 10 mg p.o. t.i.d. as needed, Eliquis 2.5 mg p.o. b.i.d., amiodarone 200 mg p.o. daily, gabapentin 300 mg p.o. t.i.d., amlodipine 10 mg p.o. daily, and insulin glargine 30 units subcu q.a.m. TIME DISCHARGING THIS PATIENT: 35 minutes. cc: Jose Cho MD
== END 2018-06-06 19:12 | disposition home health service (06) | DRG 640 ==
LOC: ED 23:19 → SUATTDRO 06-03 07:43 → 3N 06-03 07:43
PROVIDERS: ATTEND Internal Medicine
CPT/HCPCS: 70450; 71020; 71046; 80048; 80053; 80069; 80101; 80301; 80307; 80324; 80345; 80346; 80353; 80358; 80361; 80365; 81001; 82948; 83992; 84132; 85025; 93005; 94640; 94761; 94799; 96374; 97116; 97162; 97530; 99285; 99291; A9270; G0431; G0434; G0479; G0480; J1644; J2060; J7030; XXXXX